=== PATIENT | male | born 1955 | race American Indian/Alaskan Native ===

== ENCOUNTER 2016-05-06 06:22 | Emergency (ER) | payer BC ==
[2016-05-06] MEDS ORDERED: BENADRYL IM ONE (06:27)
[2016-05-06] MEDS ORDERED: BENADRYL IV ONE (06:47)
[2016-05-06] MEDS ORDERED: PEPCID IV ONE (07:07)
--- NOTE | 2016-05-06 07:16 | Emergency Department Report ---
HPI - General Chief Complaint: Allergic Reaction Time Seen by Provider: 05/06/16 07:06 - HPI HPI: This is a 61-year-old Afro-[place] male presents to the emergency department with complaint of angioedema. The patient says that his top lip began swelling on Sunday, 3 days ago. Yesterday the lower lip started swelling and it was even worse than the top lip. This morning the patient feels as if the swelling has spread to his cheeks. He denies any involvement of the tongue or throat and denies any shortness of breath or problems swallowing. Patient has a past medical history of hypertension and GERD. He takes lisinopril and ranitidine. He does not have a primary care doctor. No recent travel or sick contacts at home. He denies tobacco abuse or illicit drug use. ED Past Medical Hx - Past Medical History Previous Medical History?: Yes Hx Hypertension: Yes - Surgical History Past Surgical History?: No - Social History Smoking Status: Never Smoker Substance Use Type: None ED Review of Systems ROS: Stated complaint: ALLERGIC REACTION Other details as noted in HPI Comment: All other systems reviewed and negative Constitutional: denies: chills, fever Eyes: denies: eye pain, eye discharge, vision change ENT: other (lip and facial swelling, angioedema). denies: ear pain, throat pain Respiratory: denies: cough, shortness of breath, wheezing Cardiovascular: denies: chest pain, palpitations Gastrointestinal: denies: abdominal pain, nausea, diarrhea Genitourinary: denies: urgency, dysuria Musculoskeletal: denies: back pain, joint swelling, arthralgia Skin: denies: rash, lesions Neurological: denies: headache, weakness, paresthesias Physical Exam - Physical Exam Vital Signs: Vital Signs 05/06/16 05/06/16 05/06/16 06:27 06:48 06:54 Temperature 98.0 F Pulse Rate 99 H 103 H Respiratory 20 30 H 20 Rate Blood Pressure 156/91 O2 Sat by Pulse 98 98 98 Oximetry Physical Exam: GENERAL: The patient is well-developed well-nourished. HEENT: Normocephalic. Atraumatic. Extraocular motions are intact. Patient has moist mucous membranes. Pupils equal reactive to light bilaterally. Patient has angioedema of the lips with the lower lip worse than the top. Oropharynx is clear without tonsillar hypertrophy, erythema or exudates in the angioedema does not include the tongue or throat. No drooling or trismus. Area under the tongue is soft and does not appear consistent with Fernie angina. NECK: Supple. Trachea is midline. CHEST/LUNGS: Clear to auscultation. There is no respiratory distress noted. HEART/CARDIOVASCULAR: Regular. There is no tachycardia. There is no gallop rub or murmur. ABDOMEN: Abdomen is soft, nontender. Patient has normal bowel sounds. There is no abdominal distention. Obese habitus. SKIN: There is some nonpitting swelling, angioedema, of the lips with the bottom lip worse than the top. No appreciable swelling of the face despite patient's complaint. NEURO: The patient is awake, alert, and oriented. The patient is cooperative. The patient has no focal neurologic deficits. The patient has normal speech and gait. MUSCULOSKELETAL: There is no tenderness or deformity. There is no limitation range of motion. There is no evidence of acute injury. ED Course Vital Signs 05/06/16 05/06/16 05/06/16 06:27 06:48 06:54 Temperature 98.0 F Pulse Rate 99 H 103 H Respiratory 20 30 H 20 Rate Blood Pressure 156/91 O2 Sat by Pulse 98 98 98 Oximetry ED Medical Decision Making - Lab Data Result diagrams: 05/06/16 07:11 05/06/16 07:11 - Medical Decision Making This is a 61-year-old male on lisinopril who presents with a 4 to five-day history of angioedema of the lips. There is been no involvement of the oropharynx or throat or tongue. Patient was given steroids, Pepcid and Benadryl. Patient was watched for 4-5 hours. There was improvement in the angioedema. There was no signs of anaphylaxis or respiratory distress. Vital signs stable throughout his ED course. Patient was discharged home to follow- up with his primary care doctor. I had forgotten to give the patient a written prescription for the steroids and Pepcid to be taken over the next 5 days. However is able to reach the patient on the phone and the prescription called in across the street to the [facility] at his request. - Differential Diagnosis angioedema, anaphylaxis, Fernie angina, lymphoma Critical Care Time: No Critical care attestation.: If time is entered above; I have spent that time in minutes in the direct care of this critically ill patient, excluding procedure time. ED Disposition Clinical Impression: Angioedema Qualifiers: Encounter type: initial encounter Qualified Code(s): T78.3XXA - Angioneurotic edema, initial encounter Disposition: DISCHARGED TO HOME OR SELFCARE Is pt being admited?: No Does the pt Need Aspirin: No Condition: Stable Instructions: Angioedema (ED) Additional Instructions: Please follow-up with your primary care doctor in the next few days. Stop taking the lisinopril and never take it again. You need to talk to your primary care doctor about a substitute blood pressure medication. Try to stay away from foods are high in salt and caffeinated products to assist with your blood pressure in the meantime. Keep a blood pressure log. Return to the emergency department with any worsening of the swelling of your lips, or if it starts to involve your tongue or throat, or any acute distress. Referrals: PRIMARY CARE, [Primary Care Provider] - 3-5 Days Time of Disposition: 11:55
[2016-05-06 07:43] LABS: Basophils % (Auto) 0.8 % (0.0-1.8); Eosinophils % (Auto) 3.8 % (0.0-4.3); Hematocrit 40.9 % (35.5-45.6); Hemoglobin 13.6 gm/dl (11.8-15.2); Mean Corpuscular HGB Conc 33 % (32-34); Mean Corpuscular Hemoglobin 29 pg (28-32); Mean Corpuscular Volume 86 fl (84-94); Platelet Count 207 K/mm3 (140-440); Red Blood Count 4.76 M/mm3 (3.65-5.03); Red Cell Distribution Width 14.8 % (13.2-15.2); White Blood Count 6.6 K/mm3 (4.5-11.0)
[2016-05-06 08:00] LABS: Alanine Aminotransferase 17 units/L (7-56); Albumin 3.5 g/dL (3.9-5); Albumin/Globulin Ratio 0.9 %; Alkaline Phosphatase 85 units/L (35-129); BUN/Creatinine Ratio 13.33; Bilirubin,Total 0.3 mg/dL (0.1-1.2); Blood Urea Nitrogen 16 mg/dL (9-20); Calcium 8.6 mg/dL (8.4-10.2); Carbon Dioxide 29 mmol/L (22-30); Chloride 102.3 mmol/L (98-107); Glucose 93 mg/dL (75-100); Potassium 4.4 mmol/L (3.6-5.0); Sodium 143 mmol/L (137-145); Total Protein 7.3 g/dL (6.3-8.2)
[2016-05-06 08:07] LABS: Anion Gap 16 mmol/L
[2016-05-06 12:13] VITALS: BP 131/84
== END 2016-05-06 12:14 | disposition home or self-care (01) ==
LOC: ED 06:22
DX: T78.3XXA Angioneurotic edema, initial encounter (principal); I10 Essential (primary) hypertension; K21.9 Gastro-esophageal reflux disease without esophagitis; Y92.9 Unspecified place or not applicable
CPT/HCPCS: 36415; 80053; 84443; 85025; 96374; 96375; 96376; 99284; J1200; J2930